=== PATIENT | male | born 1945 | race Caucasian/White ===

== ENCOUNTER → 2019-11-26 | Outpatient (CLI) | payer OTHER ==
[~2019-11-26] MED LIST: ACETAMINOPHEN-1 EAC1 PO; ASPIRIN EC81 M1 PO; COLACE100 MG PO; GLUCOPHAGE XR500 MG PO; GLUCOPHAGE500 MG PO; IMDUR 60 MG TAB60 M1 PO; LANTUS SUBQ; LEVOXYL75 MCG PO; NOVOLOG100 UNIT/1 SUBQ; ROBAXIN 750 MG750 MG PO
--- NOTE | 2019-11-28 20:04 | MCT ---
[facility] [place] [address] METHACHOLINE CHALLENGE TEST Name: RITA DICKENS Room #: REG VERONICA Odom#: [id number] Admission: 11/26/19 Attend Phys: Amor Valdovinos MD Discharge: Date of : 49 Report #: [id number] THIS REPORT FOR: //name// COPIES FOR: AGE: 74 SEX/RACE: M/C Height: 70 in Exam Date: 11/26/19 Weight: 209 lbs BTPS: X >> PRE BRONCHODILATOR: PREDICTED BEST %PRED FORCED VITAL CAPACITY (FRC) 4.32 L 3.78 LPM 87 % FORCED EXP VOL/SEC (FEV1) 2.88 L 2.40 FEV/FVC 84 % MAX MID-EXP FLOW (FEF 25-75) 2.56 L/SEC 1.12 L/SEC 44 % PEAK EXP FLOW RATE (FEF MAX) 8.20 L/MIN 7.43 L/MIN MED-VC RATIO (FEF 50/FEF 50) .09 Baseline: Phenol Saline Level 1: 0.025 mg/ml BEST %PRED %CHANGE BEST %PRED %CHANGE FVC 3.78 L 87 % 0 % FVC 3.72 L 86 % -2 % FEV1 2.38 L 83 % 0 % FEV1 2.38 L 83 % -0 % Level 2: 0.25 mg/ml Level 3: 2.5 mg/ml BEST %PRED %CHANGE BEST %PRED %CHANGE FVC 3.75 L 87 % -1 % FVC 3.50 L 81 % -7 % FEV1 2.40 L 84 % 1 % FEV1 2.20 L 77 % -7 % . Level 4: 10 mg/ml Level 5: 25 mg/ml BEST %PRED %CHANGE BEST %PRED %CHANGE FVC 3.40 L 79 % -10 % FVC 3.10 L 72 % -18 % FEV1 2.10 L 73 % -12 % FEV1 1.96 L 68 % -18 % Post Bronchodilator: 1st Treatment Post Bronchodilator: 2nd Treatment BEST %PRED %CHANGE BEST %PRED %CHANGE FVC 3.51 L 81 % -7 % FVC L % % FEV1 2.33 L 81 % -2 % FEV1 L % % Post Bronchodilator: 3rd Treatment BEST %PRED %CHANGE [address] [address] METHACHOLINE CHALLENGE TEST Name: RITA DICKENS Room #: REG VERONICA Odom#: [id number] Admission: 11/26/19 Attend Phys: Amor Valdovinos MD Discharge: Date of : 49 Report #: [id number] FVC L % % FEV1 L % % >> INTERPRETATION: CC: FAM physician/PCP Amor Valdovinos METHACHOLINE CHALLENGE TEST Methacholine challenge test was performed in routine fashion with increasing doses of Provocholine. Baseline FEV1 was 2.38 liters and decreased to 1.96 liters, which is 18% change with minimal response to bronchodilator therapy. IMPRESSION: Methacholine challenge test is essentially negative. There is an intermediate response with negative 18% change with increasing doses of treatment of the Provocholine. Please correlate clinically. <ELECTRONICALLY SIGNED> By: Colin Wade MD 11/28/192003 Colin Wade MD /nt
== END ==
LOC: PUL 09:42
DX: R06.00 Dyspnea, unspecified (principal)